=== PATIENT | female | born 1960 | race Caucasian/White ===

== ENCOUNTER → 2016-05-16 | Outpatient (CLI) | payer BC ==
[~2016-05-16] MED LIST: ASPIR-LOW81 MG PO; ATIVAN 0.50.5 MG/TAB PO; BUDEPRION XL300 MG PO; CORTIZONE-10 MAXIM1% TP; ESTRACE2 MG PO; METROGEL GEL45 GM TP; ORPHENADRINE C100 MG PO; PREMARIN0.625 MG PO; TYLENOL #3 301 UDTAB PO; XANAX .25M0.25 MG/TA PO; ZOLOFT
== END ==
LOC: MC.RAD 09:56
DX: Z12.31 Encounter for screening mammogram for malignant neoplasm of breast (principal)

== ENCOUNTER → 2018-08-10 | Outpatient (CLI) | payer BC | LOC: MC.RAD 09:47 | DX: Z12.31 Encounter for screening mammogram for malignant neoplasm of breast (principal); N63.20 Unspecified lump in the left breast, unspecified quadrant ==

== ENCOUNTER → 2018-08-14 | Outpatient (CLI) | payer BC | LOC: MC.RAD 09:00 | DX: N60.02 Solitary cyst of left breast (principal) ==

== ENCOUNTER → 2019-11-20 | Outpatient (CLI) | payer BC | LOC: MC.RAD 11-08 07:15 | DX: Z12.31 Encounter for screening mammogram for malignant neoplasm of breast (principal) ==

== ENCOUNTER → 2021-05-03 | Outpatient (CLI) | payer BC | LOC: MC.RAD 09:30 | DX: Z12.31 Encounter for screening mammogram for malignant neoplasm of breast (principal) ==